=== PATIENT | male | born 1995 | race Caucasian/White ===

== ENCOUNTER 2018-08-03 21:47 | Emergency (ER) | payer SELFPAY ==
[2018-08-03 22:05] VITALS: BMI 24.0
[2018-08-03 22:16] VITALS: TEMP 98.9; O2SAT 100
[2018-08-03] MEDS ORDERED: Naproxen 550 mg Tab PO STA (22:27)
[2018-08-03] MEDS ORDERED: Tmp-Smz 800 mg-160 mg DS Tab PO STA (22:27)
[2018-08-03] MEDS ORDERED: TDAP Vaccine 0.5 mL Syr IM ONE (22:27)
--- NOTE | 2018-08-03 22:35 | ED PDOC ---
Arrival/HPI - General Chief Complaint: Abnormal Skin Integrity Time Seen by Provider: 08/03/18 22:27 Historian: Patient - History of Present Illness Narrative History of Present Illness (Text): 08/03/18 22:41 22-year-old male with no significant past medical history complains of a painful mass to the sacral area, states that he has had that now for several months and for the past several days it has become painful to touch and when he sits. Reports no fever, chills, abdominal pain, nausea, vomiting, diarrhea, back pain, urinary symptoms. Past Medical History - Tetanus Immunization Tetanus Immunization: Unknown - Psychiatric Hx Substance Use: No Family/Social History Family/Social History: No Known Family HX Smoking Status: Never Smoked Hx Alcohol Use: No Hx Substance Use: No Allergies/Home Meds Allergies/Adverse Reactions: Allergies No Known Allergies Allergy (Verified 08/03/18 22:05) Review of Systems - Review of Systems Constitutional: absent: Fatigue, Fevers Gastrointestinal: absent: Diarrhea, Vomiting Genitourinary Male: absent: Dysuria, Frequency Musculoskeletal: absent: Arthralgias, Back Pain, Neck Pain Skin: Abscess. absent: Rash, Pruritis, Skin Lesions Physical Exam Vital Signs Temp Pulse Resp BP Pulse Ox 08/03/18 22:16 98.9 F 95 H 18 149/88 100 Temperature: Afebrile Blood Pressure: Normal Pulse: Regular Respiratory Rate: Normal Appearance: Positive for: Well-Appearing, Non-Toxic, Comfortable Pain Distress: None Mental Status: Positive for: Alert and Oriented X 3 - Systems Exam Head: Present: Atraumatic, Normocephalic Back: Present: Normal Inspection Upper Extremity: Present: Normal Inspection, Normal ROM. No: Cyanosis, Edema, Swelling Lower Extremity: Present: Normal Inspection, Normal ROM. No: Edema, Swelling Neurological: Present: GCS=15, CN II-XII Intact, Speech Normal, Motor Func Grossly Intact, Normal Sensory Function Skin: Present: Warm, Dry, Normal Color, Abscess (+pilonidal cyst with possible early abscess to the sacral area with mild erythema, tenderness, induration, no edema, no fluctuance, no d/c). No: Rashes Psychiatric: Present: Alert, Oriented x 3, Normal Insight, Normal Concentration Medical Decision Making ED Course and Treatment: 08/03/18 22:36 Plan : - keflex PO - bactrim ds PO - naprosyn PO - tdap IM Advised to follow up with referral physician in 1-2 days without fail. Advised to take medication as prescribed. Return to the emergency room at any time for any new or worsening symptoms. Patient states he fully agrees with and understands discharge instructions. States that he agrees with the plan and disposition. Verbalized and repeated discharge instructions and plan. I have given the patient opportunity to ask any additional questions. - Medication Orders Current Medication Orders: Discontinued Medications Cephalexin Monohydrate (Keflex) 500 mg PO STAT STA PRN Reason: Protocol Stop: 08/03/18 22:28 Naproxen (Anaprox Ds) 550 mg PO ONCE STA Stop: 08/03/18 22:28 Tetanus/Reduced Diphtheria/Acell Pertussis (Boostrix Vaccine Inj) 0.5 ml IM .ONCE ONE Stop: 08/03/18 22:28 Trimethoprim/Sulfamethoxazole (Bactrim Ds Tab) 2 tab PO STAT STA PRN Reason: Protocol Stop: 08/03/18 22:28 - PA / KICK BOXER / Resident Statement / has reviewed & agrees with the documentation as recorded. Disposition/Present on Arrival - Present on Arrival Any Indicators Present on Arrival: No History of DVT/PE: No History of Uncontrolled Diabetes: No Urinary Catheter: No History of Decub. Ulcer: No History Surgical Site Infection Following: None - Disposition Have Diagnosis and Disposition been Completed?: Yes Diagnosis: Pilonidal cyst with abscess Disposition: HOME/ ROUTINE Disposition Time: 22:30 Patient Plan: Discharge Condition: STABLE Discharge Instructions (ExitCare): Pilonidal Cyst (DC) Additional Instructions: Thank you for letting us take care of you today. You were treated for pilonidal cyst with abscess. The emergency medical care you received today was directed at your acute symptoms. If you were prescribed any medication, please fill it and take as directed. It may take several days for your symptoms to resolve. Return to the Emergency Department if your symptoms worsen, do not improve, or if you have any other problems. Please contact your doctor in 2 days for re-evaluation and follow up / or call one of the physicians/clinics you have been referred to that are listed on the Patient Visit Information form that is included in your discharge packet. Bring any paperwork you were given at discharge with you along with any medications you are taking to your follow up visit. Our treatment cannot replace ongoing medical care by a primary care provider (PCP) outside of the emergency department. Thank you for allowing the [facility] team to be part of your care today. Prescriptions: Cephalexin [Keflex] 500 mg PO Q6 #28 capsule Naproxen 500 mg PO BID PRN #20 tablet PRN Reason: Pain, Moderate (4-7) Sulfamethoxazole/Trimethoprim [Bactrim DS 800 mg-160 mg] 2 tab PO BID #28 tab Referrals: Kvng Vance MD [Staff Provider] - Follow up with primary Forms: [employer] (Cymro), WORK NOTE
[2018-08-03 23:45] VITALS: BP 137/70; PULSE 90; RESP 17
== END 2018-08-03 23:17 | disposition home or self-care (01) ==
LOC: ED 21:47
DX: L05.01 Pilonidal cyst with abscess (principal); Z23 Encounter for immunization

== ENCOUNTER 2018-08-08 20:45 | Emergency (ER) | payer SELFPAY ==
[2018-08-08 21:30] VITALS: TEMP 99.2; O2SAT 100; BMI 23.6
[2018-08-08] MEDS ORDERED: Sodium Chloride 0.9% 1,000 ML IV STA (21:50)
--- NOTE | 2018-08-08 22:03 | ED PDOC ---
Arrival/HPI - General Historian: Patient - History of Present Illness Time/Duration: 4-6 hours Symptom Onset: Sudden Symptom Course: Resolved Quality: Dullness Severity Level: Mild - General Chief Complaint: GI Problem Time Seen by Provider: 08/08/18 20:58 - History of Present Illness Narrative History of Present Illness (Text): 08/08/18 21:55 22 year old male, past medical history of pilonidal cyst, presents to the emergency department with a headache and dizziness. Patient states the headache started 4 hours ago while he was running errands. Headache is primarily in temporal regions bilaterally described as dull and achy. He took Panadol ( [place] Tylenol), which he states did not provide relief of symptoms. He has had headaches before but this one was more severe than previous episodes. Patient endorses chills and palpitations that started when he arrived at the hospital. Prior to arrival he had two bowel movements that were soft in consistency with no blood or mucous noted. Denies loss of consciousness, lightheadedness, vision or hearing changes, gait instability, or photophobia. Denies fever, chills, nausea, vomiting, shortness of breath, cough, chest pain, abdominal pain, or urinary symptoms. (David Fraire) Past Medical History - Provider Review Nursing Documentation Reviewed: Yes - Tetanus Immunization Tetanus Immunization: Unknown - Psychiatric Hx Substance Use: No Family/Social History - Physician Review Nursing Documentation Reviewed: Yes Family/Social History: No Known Family HX Smoking Status: Never Smoked Hx Alcohol Use: No Hx Substance Use: No Allergies/Home Meds Allergies/Adverse Reactions: Allergies No Known Allergies Allergy (Verified 08/03/18 22:05) Review of Systems - Physician Review All systems were reviewed & negative as marked: Yes - Review of Systems Constitutional: absent: Fevers, Night Sweats Eyes: absent: Vision Changes, Photophobia ENT: absent: Hearing Changes, Sore Throat, Rhinorrhea Respiratory: absent: SOB, Cough Cardiovascular: Palpitations. absent: Chest Pain Gastrointestinal: Stool Changes. absent: Abdominal Pain, Nausea, Vomiting Genitourinary Male: absent: Dysuria, Hematuria Musculoskeletal: absent: Back Pain Skin: absent: Rash, Skin Lesions Neurological: absent: Headache, Dizziness, Gait Changes Endocrine: absent: Diaphoresis Physical Exam Vital Signs Reviewed: Yes Temperature: Afebrile Blood Pressure: Normal Pulse: Tachycardic Respiratory Rate: Normal Appearance: Positive for: Well-Appearing, Non-Toxic, Comfortable Pain Distress: None Mental Status: Positive for: Alert and Oriented X 3 - Systems Exam Head: Present: Atraumatic, Normocephalic Pupils: Present: PERRL Extroacular Muscles: Present: EOMI Conjunctiva: Present: Normal Mouth: Present: Dry Pharnyx: Present: Normal. No: ERYTHEMA, EXUDATE, TONSILS ENLARGED, Muffled/ Hoarse Voice Nose (External): Present: Atraumatic Nose (Internal): Present: Normal Inspection Respiratory/Chest: Present: Clear to Auscultation, Good Air Exchange. No: Respiratory Distress, Accessory Muscle Use Cardiovascular: Present: Normal S1, S2, Peripheal Pulses Present, Tachycardic. No: Murmurs Abdomen: No: Tenderness, Distention, Peritoneal Signs Rectal: No: Occult Blood, Rectal Tenderness, Gross Blood Upper Extremity: Present: Normal Inspection, NORMAL PULSES Lower Extremity: Present: Normal Inspection, NORMAL PULSES. No: Edema Neurological: Present: CN II-XII Intact, Speech Normal, Motor Func Grossly Intact, Normal Sensory Function Skin: Present: Warm, Dry, Normal Color. No: Rashes Psychiatric: Present: Alert, Oriented x 3, Normal Insight, Normal Concentration Vital Signs Temp Pulse Resp BP Pulse Ox 08/08/18 23:27 99 H 18 108/67 100 08/08/18 21:28 99.2 F 105 H 20 113/71 100 Medical Decision Making ED Course and Treatment: Impression: Pt seen and evaluated with medical health researcher. Aware and agree with HPI, clinical findings, plan, and management. Pt, whose past medical history includes pilonidal cyst, presented for headache and dizziness. Plan: -- Labs -- Urinalysis -- Rapid influenza -- IV fluids -- Reassess and disposition (Gómez Sosa) 08/08/18 22:05 22M, PMH of pilonidal cyst, presents to the ED with headache and dizziness that started 4 hours ago, now resolved. CBC CMP UA IVF Rapid Flu A/B 08/08/18 23:10 UA, CBC, and CMP within normal limits Rapid flu negative Patient states improvement of symptoms. Discussed importance of hydration and adequate nutrition. If symptoms worse, please return to ED. Patient verbalized understanding and agreement of treatment plan. Case reviewed and discussed with attending provider. (David Fraire) - Lab Interpretations Lab Results: 08/08/18 22:10 08/08/18 22:10 Lab Results 08/08/18 22:10: Urine Color Light yellow, Urine Appearance Clear, Urine pH 7.0, Ur Specific [place] <= 1.005, Urine Protein Negative, Urine Glucose (UA) Negative, Urine Ketones Negative, Urine Blood Negative, Urine Nitrate Negative, Urine Bilirubin Negative, Urine Urobilinogen 0.2, Ur Leukocyte Esterase Negative 08/08/18 22:10: Sodium 136, Potassium 4.1, Chloride 100, Carbon Dioxide 24, Anion Gap 16, BUN 17, Creatinine 1.2, Est GFR ( Amer) > 60, Est GFR (Non- Af Amer) > 60, Random Glucose 92, Calcium 9.2, Total Bilirubin 0.7, AST 23, ALT 26, Alkaline Phosphatase 51, Total Protein 7.5, Albumin 4.6, Globulin 2.9, Albumin/Globulin Ratio 1.6 08/08/18 22:10: Influenza Typ A,B (EIA) Negative for flu a/b 08/08/18 22:10: WBC 8.5, RBC 5.36, Hgb 14.5, Hct 42.8, MCV 79.9 L, MCH 27.1, MCHC 33.9, RDW 12.4, Plt Count 201, MPV 10.6, Gran % 81.5 H, Lymph % (Auto) 9.0 L, [place] % (Auto) 7.5 H, Eos % (Auto) 1.8, Baso % (Auto) 0.2, Gran # 6.89 H, Lymph # (Auto) 0.8 L, [place] # (Auto) 0.6, Eos # (Auto) 0.2, Baso # (Auto) 0.02 - Medication Orders Current Medication Orders: Discontinued Medications Acetaminophen (Tylenol 325mg Tab) 650 mg PO STAT STA Stop: 08/08/18 23:22 Last Admin: 08/08/18 23:26 Dose: 650 mg MAR Pain/Vitals Document 08/08/18 23:26 SACHIN (Rec: 08/08/18 23:27 SACHIN [id number]) Pain Reassessment Is This A Pain ReAssessment? No Sleep Is patient sleeping during reassessment? No Presence of Pain Presence of Pain Yes Location Pain Location Body [employer] Description Throbbing Intensity 3 Scale Used Numeric Pain Behavior Irritability Sodium Chloride (Sodium Chloride 0.9%) 1,000 mls @ 999 mls/hr IV .Q1H1M STA Stop: 08/08/18 22:50 Last Admin: 08/08/18 22:06 Dose: 999 mls/hr eMAR Start Stop Document 08/08/18 22:06 SACHIN (Rec: 08/08/18 22:06 SACHIN [id number]) Intravenous Solution Start Date 08/08/18 Start Time 22:06 End Date 08/08/18 End time 23:07 Total Infusion Time 61 Disposition/Present on Arrival - Present on Arrival Any Indicators Present on Arrival: No History of DVT/PE: No History of Uncontrolled Diabetes: No Urinary Catheter: No History of Decub. Ulcer: No History Surgical Site Infection Following: None - Disposition Have Diagnosis and Disposition been Completed?: Yes Disposition Time: 23:22 Patient Plan: Discharge - Disposition Diagnosis: Dehydration, Headache Disposition: HOME/ ROUTINE Condition: GOOD Discharge Instructions (ExitCare): Dehydration, Adult (DC), Headache, Adult (DC ) Additional Instructions: Please follow up with your primary medical doctor within the next 3-5 days. If symptoms reoccur or worsen, please return to the emergency room. Referrals: FAMILY PROVIDER,NO [Primary Care Provider] - Follow up with primary Chelo Ivy MD [Medical Doctor] - Follow up with primary Forms: [employer] (Hebrew), WORK NOTE
[2018-08-08 22:49] LABS: BASO # 0.02 K/mm3 (0.0-2.0); BASO % 0.2 % (0.0-3.0); EOS # 0.2 (0.0-0.7); EOS % 1.8 % (1.5-5.0); GRAN # 6.89 (1.4-6.5); GRAN % 81.5 % (50.0-68.0); HEMOGLOBIN 14.5 g/dL (14.0-18.0); LYMPH # 0.8 (1.2-3.4); MEAN CELL VOLUME 79.9 fl (80.0-105.0); MEAN CORPUSCULAR HEMOGLOBIN 27.1 pg (25.0-35.0); MEAN CORPUSCULAR HGB CONC 33.9 g/dl (31.0-37.0); MEAN PLATELET VOLUME 10.6 fl (7.0-11.0); MONO # 0.6 (0.1-0.6); MONO % 7.5 % (1.0-6.0); RBC 5.36 10^6/uL (3.5-6.1); RED CELL DISTRIBUTION WIDTH 12.4 % (11.5-14.5); WHITE BLOOD COUNT 8.5 10^3/ul (4.5-11.0)
[2018-08-08 22:52] LABS: ALB/GLOB RATIO 1.6 (1.1-1.8); ALBUMIN 4.6 g/dL (3.0-4.8); ALT/SGPT 26 U/L (7-56); AST/SGOT 23 U/L (17-59); BLOOD UREA NITROGEN 17 mg/dL (7-21); CALCIUM 9.2 mg/dL (8.4-10.5); GFR NON-AFRICAN AMERICAN > 60; URINE BILIRUBIN NEGATIVE (NEGATIVE); URINE BLOOD NEGATIVE (NEGATIVE); URINE GLUCOSE (UA) NEGATIVE (NEGATIVE); URINE LEUKOCYTE ESTERASE NEGATIVE Leu/uL (NEGATIVE); URINE PROTEIN NEGATIVE mg/dL (<30 mg/dL); URINE UROBILINOGEN 0.2 E.U./dL (<1 E.U./dL)
[2018-08-08 22:53] LABS: URINE APPEARANCE CLEAR (CLEAR); URINE COLOR LIGHT YELLOW (YELLOW)
[2018-08-08 23:29] VITALS: BP 108/67; PULSE 99; RESP 18
== END 2018-08-08 23:40 | disposition home or self-care (01) ==
LOC: ED 20:45
DX: E86.0 Dehydration (principal); R51 Headache
CPT/HCPCS: 80053; 81003; 85025; 87804; 96360; 99284; J7030